=== PATIENT | female | born 2000 | race African-American/Black ===

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

== ENCOUNTER → 2022-03-30 | Outpatient (CLI) | payer OTHER ==
[~2022-03-30] MED LIST changes: +AMITRIPTYLINE H10 MG PO; +BUSPIRONE HCL7.5 MG PO; +FAMOTIDINE40 MG PO; +FOLIC ACID; +IRON236 MG PO; +ZYRTEC10 M3 PO
[2022-03-30 10:44] LABS: HEMOGLOBIN 11.7 gm/dl (12.3-15.3); RED BLOOD COUNT 4.08 M/UL (4.00-5.10)
[2022-03-30 11:06] LABS: BUN/CREATININE RATIO 18 (0-10)
== END ==
LOC: OPSV2 09:00
PROVIDERS: Orthopaedic Surgery
DX: Z01.812 Encounter for preprocedural laboratory examination (principal); M67.441 Ganglion, right hand
CPT/HCPCS: 80048; 85027

== ENCOUNTER → 2022-04-14 | Day surgery (SDC) | payer OTHER ==
[~2022-04-14] VITALS: Ht 162.6 cm; Wt 64.4 kg
[~2022-04-14] MED LIST changes: +ULTRAM50 MG PO
== END | disposition home or self-care (01) ==
LOC: OR 04-12 18:30
DX: M67.431 Ganglion, right wrist (principal); K21.9 Gastro-esophageal reflux disease without esophagitis; F41.9 Anxiety disorder, unspecified; F17.290 Nicotine dependence, other tobacco product, uncomplicated; Z79.899 Other long term (current) drug therapy
CPT/HCPCS: 84703; J0690; J1100; J1170; J2250; J2405; J2704; J3010